=== PATIENT | female | born 1935 | race Caucasian/White ===

== ENCOUNTER 2017-06-14 08:26 | Day surgery (SDC) | payer OTHER, BC ==
[2017-06-07 16:39] VITALS: BMI 29.7
[2017-06-14] MEDS ORDERED: MIDAZOLAM HCL 2 MG/2 ML SINGLE DOSE VIAL ONE (12:53)
[2017-06-14] MEDS ORDERED: PROPOFOL 20 ML ONE (12:58)
[2017-06-14] MEDS ORDERED: LIDOCAINE HCL/PF 2% SDV 5ML VIAL ONE (13:03)
[2017-06-14] MEDS ORDERED: SODIUM CHLORIDE 0.9% P/F 10 ML VIAL IJ ONE (13:07)
[2017-06-14] MEDS ORDERED: ceFAZolin SODIUM 1 GM VIAL ONE (13:07)
[2017-06-14] MEDS ORDERED: DEXAMETHASONE SOD PHOSPHATE 4 MG/1 ML VIAL ONE (13:11)
[2017-06-14] MEDS ORDERED: ONDANSETRON 4 MG/2 ML VIAL ONE (13:11)
[2017-06-14] MEDS ORDERED: oxyCODONE HCL 5 MG TABLET PO PRN (14:03)
[2017-06-14] MEDS ORDERED: ONDANSETRON 4 MG/2 ML VIAL IVPUSH PRN (14:03)
[2017-06-14] MEDS ORDERED: BUPIVACAINE HCL/PF 2.5 MG/ML - 30 ML VIAL IJ ONE (14:09)
[2017-06-14] MEDS ORDERED: LACTATED RINGERS SOLUTION 1,000 ML IV SCH (14:15)
[2017-06-14] MEDS ORDERED: GUM MASTIC/STORAX/MSAL/ALCOHOL 1 DRP DROPSBTL MC ONE (14:43)
[2017-06-14] MEDS ORDERED: ONDANSETRON 4 MG/2 ML VIAL IVPB PRN (15:02)
[2017-06-14] MEDS ORDERED: KETOROLAC TROMETHAMINE 30 MG/1 ML VIAL IVPUSH PRN (15:02)
[2017-06-14] MEDS ORDERED: DEXTROSE 5%-0.45% SALINE 1,000 ML IV SCH (15:15)
[2017-06-14] MEDS ORDERED: KETOROLAC TROMETHAMINE 30 MG/1 ML VIAL ONE (15:21)
[2017-06-14 17:14] VITALS: BP 121/65; PULSE 72; TEMP 98.2
--- NOTE | 2017-06-15 07:55 | OP ---
DATE OF OPERATION: 06/14/2017 PREOPERATIVE DIAGNOSIS: Left breast cancer, overlapping regions. POSTOPERATIVE DIAGNOSIS: Left breast cancer, overlapping regions. PROCEDURE: Left breast partial mastectomy with mammographic needle localization with left axillary sentinel lymph node biopsy and tissue transfer closure, 3 x 4 cm. ANESTHESIA: General, laryngeal mask airway anesthesia. PRIMARY SURGEON: Dimitri Almonte MD BUSINESS OFFICE TECHNOLOGY INSTRUCTOR: ARDEN Navarro COMPLICATIONS: There were no complications. Briefly, the patient is an 82-year-old postmenopausal white female of [place] heritage. She has no family history of breast or ovarian cancer. The patient underwent the mammography, showing a spiculated density around the left breast 12 to 1 o'clock region. Ultrasound was negative. Stereotactic biopsies showed a well-differentiated infiltrating ductal cancer which was ER/NE positive, HER2/[place]y negative. MRI showed no multifocal or contralateral disease. The patient was advised on undergoing a wide excision and sentinel lymph node biopsy. The patient was brought in for the procedure on June 14, 2017. She underwent the needle localization and lymphoscintigraphy at [facility] and then was brought to the [place] holding area. In the holding area, site verification was made and informed consent was obtained. The patient was brought into the operating room and laid on the OR table in the supine position. She was given a gram of Ancef prior to incision. Venodynes were placed on the lower extremities prior to induction. She underwent general laryngeal mask airway anesthesia. The left breast was sterilely prepped and draped in the usual fashion with the wire prepped in the field. Lymphazurin blue, 3 mL, were injected intradermally and peritumorally around the needle localization site. An incision was made just below the hair-bearing area of the left axilla. No radioactive dye was found localized in the left axilla. However, 2 blue nodes were easily found in the level I region of the left axilla and sent for permanent section in formalin. Hemostasis was then achieved. The wound was closed using interrupted 2-0 plain suture to close the subcutaneous tissue and then the skin was closed using interrupted 3-0 deep dermal Vicryl suture and a running 4-0 subcuticular Biosyn suture. At this point, the wide excision was undertaken around the 12 o'clock region of the left breast with a small ellipse of skin removed with the wide excision. Dissection was undertaken all the way down to the pectoralis major muscle. Breast tissue was completely removed from around the wire. The specimen was oriented with a long lateral, short superior stitch and specimen radiograph showed removal of the clip in question in the middle of the specimen. Hemostasis was achieved. Separate margins were then taken on the superior, inferior, medial, lateral, and deep aspects with sutures marking the biopsy cavity side and each of these was sent separately in formalin to Pathology as margins. At this point, the tissue transfer closure was accomplished by undermining the breast tissue and bringing in a 3 x 4-cm area of breast tissue into the defect which was approximated using 2-0 plain suture. The skin was closed using interrupted 3-0 deep dermal Vicryl suture and a running 4-0 subcuticular Biosyn suture. Mastisol, Steri-Strips were applied over the wound with a compressive dressing placed over this. The patient was placed in a surgical bra postoperatively. The patient tolerated the procedure well without difficulty and the laryngeal mask airway tube was removed at the end of the case. She was recovered in the postanesthesia care unit and will be discharged home the same day once discharge criteria are met. She is to follow up in the office in 1 week for formal wound pathology check. Again, all sponge and needle counts were correct at the end of the case and estimated blood loss was about 25 mL. DIMITRI ALMONTE M.D. [id number]
--- NOTE | 2017-06-19 14:29 | PATH ---
Surgical Pathology Report Patient Name: JUDITH GARAY [facility]. Rec. #: [id number] /Age/Gender: 1935 (Age: 82) / F Account: [id number] Location: [facility] AMBULATORY Taken: 06/14/2017 Received: 06/15/2017 Reported: 06/19/2017 Physicians: Kennedy Almonte M.D. Specimen(s) Received A: SENTINEL LYMPH NODE #1-LEFT BREAST B: SENTINEL LYMPH NODE #2 -LEFT BREAST C: LEFT BREAST WIDE EXCISION D: LEFT BREAST SUPERIOR MARGIN E: LEFT BREAST LATERAL MARGIN F: LEFT BREAST INFERIOR MARGIN G: LEFT BREAST MEDIAL MARGIN H: LEFT BREAST DEEP MARGIN Clinical History Wide excision: Invasive carcinoma Final Diagnosis A. LYMPH NODE, LEFT BREAST SENTINEL #1, EXCISION: ONE LYMPH NODE, NEGATIVE FOR METASTATIC CARCINOMA (0/1). B. LYMPH NODE, LEFT BREAST SENTINEL #2, EXCISION: ONE LYMPH NODE, NEGATIVE FOR METASTATIC CARCINOMA (0/1). C. BREAST, LEFT, WIDE EXCISION: INVASIVE DUCTAL CARCINOMA, MODERATELY DIFFERENTIATED (TUBULE SCORE: 3/3, NUCLEAR GRADE: 2/3, MITOTIC SCORE: 1/3; TOTAL NATALYA SCORE: 6/9). INVASIVE CARCINOMA MEASURES 1.4 CM IN GREATEST DIMENSION, MICROSCOPICALLY. DUCTAL CARCINOMA IN SITU (DCIS), SOLID AND PAPILLARY TYPE, INTERMEDIATE NUCLEAR GRADE IS PRESENT ADMIXED WITH INVASIVE CARCINOMA A MINOR COMPONENT. INVASIVE CARCINOMA EXTENDS TO THE INFERIOR AND FOCALLY TO THE LATERAL MARGIN. DCIS IS FOCALLY AT 1 MM FROM THE CLOSEST DEEP MARGIN. SEE SPECIMENS D-H FOR FINAL MARGINS. SKIN IS PRESENT AND IS UNINVOLVED BY CARCINOMA. NO LYMPHOVASCULAR INVASION IS IDENTIFIED. PRIOR BIOPSY SITE CHANGES ARE PRESENT. REMAINING BREAST TISSUE SHOWS PROLIFERATIVE FIBROCYSTIC CHANGES. PATHOLOGIC STAGE (pTNM): pT1c pN0. SEE ALSO INVASIVE CARCINOMA CASE SUMMARY BELOW. D. BREAST, LEFT, SUPERIOR MARGIN, EXCISION: BENIGN FIBROADIPOSE TISSUE. E. BREAST, LEFT, LATERAL MARGIN, EXCISION: BENIGN BREAST TISSUE. F. BREAST, LEFT, INFERIOR MARGIN, EXCISION: BENIGN BREAST TISSUE. G. BREAST, LEFT, MEDIAL MARGIN, EXCISION: BENIGN BREAST TISSUE. H. BREAST, LEFT, DEEP MARGIN, EXCISION: BENIGN FIBROADIPOSE TISSUE AND SKELETAL MUSCLE. Comments Breast Invasive Carcinoma: Surgical Pathology Cancer Case Summary Based on AJCC/UICC TNM, 7th edition Procedure _X_ Excision with image-guided localization Lymph Node Sampling _X_ Bath lymph node(s) Specimen Laterality _X_ Left Tumor Size: Size of Largest Invasive Carcinoma: 1.4 cm Tumor Focality _X_ Single focus of invasive carcinoma Macroscopic and Microscopic Extent of Tumor Skin _X_ Invasive carcinoma does not invade into the dermis or epidermis Nipple _X_ Not applicable (excisions less than total mastectomy) Ductal Carcinoma In Situ (DCIS) _X_ DCIS is present _X_ as a minor component (< 25% of tumor) Histologic Type of Invasive Carcinoma : _X_ Invasive carcinoma of no special type (ductal, not otherwise specified) Histologic Grade: ([place] Histologic Score) Tubular Differentiation _X_ Score 3 Nuclear Pleomorphism _X_ Score 2 Mitotic Rate _X_ Score 1 Overall Grade _X_ Grade 2: scores of 6 or 7 (moderately differentiated) Margins _X_ Margins uninvolved by invasive carcinoma Distance from closest margin: cannot be determined ( carcinoma extends to the inferior and lateral margins in wide excision C. Final inferior ( F) and lateral (E) margins are negative for carcinoma). _X_ Margins uninvolved by DCIS Distance from closest margin: 1 mm from deep margin in wide excision C. Final deep margin H is negative for DCIS. Lymph-Vascular Invasion _X_ Not identified Lymph Nodes Total number of lymph nodes examined (sentinel and nonsentinel): 2 Number of sentinel lymph nodes examined: 2 Number of lymph nodes with macrometastases ( > 2 mm): 0 Number of lymph nodes with micrometastases (>0.2 mm to 2 mm and/or >200cells):0 Number of lymph nodes with isolated tumor cells (=0.2 mm and =200 cells): 0 Extranodal Extension _X_ Not applicable Pathologic Staging (pTNM) Primary Tumor (Invasive Carcinoma): pT1c Regional Lymph Nodes (pN): pN0 (sn) Biomarker Studies Results of ER, HI, Her2 & Ki67 studies will be reported separately in an addendum. Electronically Signed Babs Johnson M.D. Addendum Reported: 06/25/2017 Addendum Diagnosis Results of ER, HI, Her2 (IHC) & Ki-67 studies performed on block C1 at [place], [place] ([id number]) are as follows: ER (clone [id number] mouse monoclonal antibody by [employer]): > 90 % nuclear staining with strong intensity (Positive). HI (clone16 mouse monoclonal antibody by [employer]): > 90 % nuclear staining with moderate to strong intensity (Positive). Her2 IHC (EP3 from [employer], formerly known as [id number], using [employer] Polymer Refine detection kit): 0 (Negative). Ki-67: ~10% (low proliferative index). Positive and negative controls (internal if applicable) show appropriate results. Formalin fixation and cold ischemic times are within current ASCO/CAP recommendations for ER, HI and Her2 testing. Babs Johnson M.D. Gross Description A. Received in formalin labeled "sentinel node #1 (left breast)," is a 0.7 x 0.6 x 0.5 cm bello, irregular lymph node with attached fat. The specimen is bisected and entirely submitted in one cassette. B. Received in formalin labeled "sentinel node #2 (left breast)," is a 0.7 x 0.5 x 0.2 cm bello, irregular lymph node with attached fat. The specimen is submitted in toto in one cassette. C. Received in formalin, labeled "left breast wide excision," is a 6.0 x 5.5 x 5.2 cm. bello-yellow, irregular, portion of fibroadipose tissue with a needle localization wire present. There is a short suture marking the superior aspect and a long suture marking the lateral aspect, per the surgeon. The anterior surface displays a 2.7 x 0.4 cm bello, elliptical, unremarkable portion of skin. The specimen is inked as follows: Superior blue; inferior green; lateral red; medial yellow; deep black. The specimen is serially sectioned from anterior to deep. Sectioning reveals a 1.6 x 1.4 x 1.2 cm bello, firm mass abutting the lateral and inferior margins. The mass is at 0.7 cm from the deep margin. The remaining breast parenchyma displays multiple foci of focally firm fibrous tissue. Senior Analytical Chemist sections are submitted in 8 cassettes as follows: 1-2-one full-face section of mass each (each with lateral and inferior margins); 3-deep margin; 4-medial margin; 2-1-wxnkypeg margin; 7-skin; 8-uninvolved fibrous tissue with inferior margin. Time to formalin fixation: 16 minutes Total formalin fixation time: Approximately 28 hours. D. Received in formalin labeled "left breast superior margin," is a 2.7 x 1.8 x 0.6 cm irregular portion of fibroadipose tissue with a suture marking the biopsy cavity side, per the surgeon. The new margin is inked blue and the specimen is serially sectioned. The specimen is entirely submitted in 3 cassettes E. Received in formalin labeled "left breast lateral margin," and is a 3.2 x 1.9 x 0.6 cm irregular portion of fibroadipose tissue with a suture marking the biopsy cavity site, per the surgeon. The new margin is inked blue and the specimen is serially sectioned. The specimen is entirely submitted in 3 cassettes. F. Received in formalin labeled "left breast inferior margin," is a 2.2 x 1.3 x 0.6 cm irregular portion of fibroadipose tissue with a suture marking the biopsy cavity side, per the surgeon. The new margin is inked blue and the specimen is serially sectioned. The specimen is entirely submitted in 2 cassettes. G. Received in formalin labeled "left breast medial margin," is a 1.9 x 1.5 x 0.3 cm irregular portion of fibroadipose tissue with a suture marking the biopsy cavity side, per the surgeon. The new margin is inked blue and the specimen is serially sectioned. The specimen is entirely submitted in 2 cassettes. H. Received in formalin labeled "left breast deep margin," is a 2.0 x 1.2 x 0.4 cm irregular portion of fibroadipose tissue with a suture marking the biopsy cavity side, per the surgeon. The new margin is inked blue and the specimen is serially sectioned. The specimen is entirely submitted in 2 cassettes. 06/15/2017 [facility]
== END 2017-06-14 17:30 | disposition home or self-care (01) ==
LOC: FASU 08:26
PROVIDERS: ATTEND Surgery Surgical Oncology
PROC: 0JX60ZB Transfer Chest Subcutaneous Tissue and Fascia with Skin and Subcutaneous Tissue, Open Approach (ICD-10-PCS; 2017-06-14)
PROC: 0HBU0ZZ Excision of Left Breast, Open Approach (ICD-10-PCS; principal; 2017-06-14 13:21)
PROC: 07B60ZX Excision of Left Axillary Lymphatic, Open Approach, Diagnostic (ICD-10-PCS; 2017-06-14 13:21)
DX: C50.812 Malignant neoplasm of overlapping sites of left female breast (principal)
CPT/HCPCS: 19281; 78195-TC; 88307-TC; 94760; A9541